=== PATIENT | female | born 1950 | race Caucasian/White ===

== ENCOUNTER → 2018-08-09 | Outpatient (CLI) | payer MEDICARE, OTHER | LOC: MC.RAD 08:15 | DX: Z12.31 Encounter for screening mammogram for malignant neoplasm of breast (principal) ==

== ENCOUNTER → 2021-07-17 | Outpatient (CLI) | payer MEDICARE, OTHER | LOC: MC.RAD 10:30 | DX: Z12.31 Encounter for screening mammogram for malignant neoplasm of breast (principal); N64.89 Other specified disorders of breast; R59.0 Localized enlarged lymph nodes ==

== ENCOUNTER → 2021-07-30 | Outpatient (CLI) | payer MEDICARE, OTHER | LOC: MC.RAD 08:00 | DX: N63.32 Unspecified lump in axillary tail of the left breast (principal); N64.89 Other specified disorders of breast ==

== ENCOUNTER → 2022-12-18 | Outpatient (CLI) | payer MEDICARE, OTHER | LOC: MC.RAD 13:54 | DX: N63.23 Unspecified lump in the left breast, lower outer quadrant (principal) ==

== ENCOUNTER 2023-10-19 13:00 | Outpatient (RCR) | payer MEDICARE, OTHER ==
[~2023-10-19 13:00] MED LIST: ACULAR 5 ML5 ML OD; FISH OIL 500 M1 EAC1 PO; PRILOSEC 20MG20 MG PO; PRINIVIL10 MG PO; ULTRAM 50MG TAB50 MG PO; VIGAMOX 0.5% 3 M3 ML OP; XANAX 0.5MG0.5 MG PO; ZOCOR 20MG20 MG PO
== END 2023-10-22 | disposition home or self-care (01) ==
LOC: WSPT
DX: C50.112 Malignant neoplasm of central portion of left female breast (principal)

== ENCOUNTER 2023-10-26 09:44 | Outpatient (RCR) | payer MEDICARE, OTHER | END 2023-11-22 | disposition home or self-care (01) | LOC: WSPT | DX: C50.112 Malignant neoplasm of central portion of left female breast (principal); I89.0 Lymphedema, not elsewhere classified; Z90.12 Acquired absence of left breast and nipple ==

== ENCOUNTER 2023-12-31 15:33 | Outpatient (RCR) | payer MEDICARE, OTHER | END 2024-01-22 | disposition home or self-care (01) | LOC: WSPT | DX: C50.112 Malignant neoplasm of central portion of left female breast (principal); I89.0 Lymphedema, not elsewhere classified; Z90.10 Acquired absence of unspecified breast and nipple ==

== ENCOUNTER → 2024-05-27 | Outpatient (REF) | payer MEDICARE, OTHER ==
[2024-05-27 15:31] LABS: BAND 2 % (0-10); BASOPHIL 2 % (0-2); EOSINOPHIL 1 % (0-4); LYMPHOCYTE 17 % (20.0-51.0); NEUTROPHILS 72 % (42.0-75.2); PLATELET ESTIMATE NORMAL (NORMAL)
== END ==
LOC: ZCOL.LAB 13:10
PROVIDERS: Family Medicine
DX: C50.112 Malignant neoplasm of central portion of left female breast (principal)